=== PATIENT | female | born 1995 | race Caucasian/White ===

== ENCOUNTER 2021-06-09 16:40 | Outpatient (REF) | payer MEDICAID, SELFPAY ==
[2021-06-09 20:16] LABS: *AMPHETAMINES SCREEN URINE Negative (Negative); *BARBITURATES SCREEN URINE Negative (Negative); *BENZODIAZEPINES SCREEN URINE Negative (Negative); Cannabinoids THC Negative (Negative); Cocaine Screen,Urine Negative (Negative); METHADONE URINE SCREEN Negative (Negative); OPIATES URINE SCREEN Negative (Negative)
[2021-06-09 20:35] LABS: Tricyclic Antidepressants Negative (Negative)
[2021-06-16 17:03] LABS: Buprenorphine Negative ng/mL (Cutoff: 5.0)
== END 2021-06-09 16:41 | disposition home or self-care (01) ==
LOC: LBN 16:40
PROVIDERS: Visit Provider Advanced Practice Midwife
DX: Z34.92 Encounter for supervision of normal pregnancy, unspecified, second trimester (principal)
CPT/HCPCS: 80307; 87086